=== PATIENT | female | born 1995 | race Caucasian/White ===

== ENCOUNTER 2017-05-16 17:19 | Emergency (ER) | payer OTHER ==
--- NOTE | 2017-05-16 17:38 | ED ORDER SUMMARY ---
..... Patient: NELDA KNOX OrderSheet [facility] VisitID: [id number] [place] [address] 22y, F Registration Date/Time: 05/16/2017 ORDER SHEET Weight: 84.3 kg (stated) Allergies: Percocet GENERAL ORDERS: Culture, Strep Screen Urgent (17:30 05/16/2017 EKoroleva P.A.-C) (Ack 17:31 LNations ER Tech1) (17:33 ASchmuck) POC Glucose (17:50 05/16/2017 EKoroleva P.A.-C) (17:54 ASchmuck) Chest 2V Urgent (17:56 05/16/2017 EKoroleva P.A.-C) (Ack 18:00 LNations ER Tech1) (18:12 MCampbell) Monoscreen Urgent (17:56 05/16/2017 EKoroleva P.A.-C) (Ack 18:00 LNations ER Tech1) (18:23 PWeiler ER Tech1) CBC w Diff Urgent (17:56 05/16/2017 EKoroleva P.A.-C) (Ack 18:00 LNations ER Tech1) (18:23 PWeiler ER Tech1) MEDICATION ORDERS: Tylenol w Codeine PO 2 tabs (HIGH ALERT MEDICATION, NOW) (17:30 05/16/2017 EKoroleva P.A.-C) (Ack 17:32 ASchmuck) (17:38 ASchmuck) Dexamethasone PO 8mg (NOW) (17:30 05/16/2017 EKoroleva P.A.-C) (Ack 17:32 ASchmuck) (17:38 ASchmuck) Motrin PO 800 mg (NOW) (17:30 05/16/2017 EKoroleva P.A.-C) (Ack 17:32 ASchmuck) (17:39 ASchmuck) Insulin Reg Subcut 6 units (HIGH ALERT MEDICATION, NOW) (18:21 05/16/2017 EKoroleva P.A.-C) (18:27 ASchmuck) IV FLUIDS: ORDER SHEET NOTES: [Electronically signed by Jessica Tony P.A.-C (19:26 05/16/2017)] [Electronically signed by Snehal Ortega (23:34 05/16/2017)] [Electronically locked/signed by Snehal Ortega (23:34 05/16/2017)]
--- NOTE | 2017-05-16 17:38 | ED CLINICAL REPORT ---
Clinical Report - Physicians/Mid Levels [facility] [address] [place] [address] 05/16/2017 17:21 Patient: NELDA KNOX Time Seen: 1725. Arrived- By private vehicle. Historian- patient and significant other. HISTORY OF PRESENT ILLNESS Chief Complaint: SORE THROAT. 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 The patient has had a sore throat. No mouth sores, nasal discharge, swollen jaw or face or jaw pain. No facial pain. (patient with sore throat, dry cough over the last 3 days, with chills. Loss of voice today. No sick contacts. No mono exposures. No mono exposure). REVIEW OF SYSTEMS No fever, difficulty breathing, nausea, abdominal pain or joint pain. No skin rash. She has had a cough. All systems otherwise negative, except as recorded above. PAST HISTORY Problems: Gastroenteritis. Adverse Drug Reaction. Bronchitis. Diabetes Mellitus. Tetanus Status. Acute Pain. Cellulitis. Immunizations. LNMP - Last Normal Menstrual Period. Additional Surgeries: Dental Surgery. Medications: None. Allergies: Percocet. (pain gets worse). SOCIAL HISTORY Smoker- current status unknown. Alcohol use. No drug use. ADDITIONAL NOTES The nursing notes have been reviewed. PHYSICAL EXAM Vital Signs: 05/16/2017 17:30 BP: 129/89. HR: 106. RR: 16. O2 saturation: 98%. Temp: 98.8 F. Appearance: Alert. No apparent distress. Head: Normal external inspection. Eyes: Conjunctivae and eyelids normal. ENT: Nose normal. Pharyngeal erythema. Lips normal. Gums normal. No trismus present. Neck: Lymphadenopathy present. Thyroid normal. Neck supple. CVS: Normal heart rate and rhythm. Heart sounds normal. Respiratory: No respiratory distress. Breath sounds normal. No decreased air movement or rales. Abdomen: Soft and nontender. No organomegaly. Skin: Normal skin color. No rash. LABS, X-RAYS, AND EKG Chest X-ray: (IMPRESSION: 1. No evidence of acute cardiopulmonary disease. 2. Stable exam compared to prior study. Electronically Final signed by:Tiny Hancock MD 05/16/2017 6:13:52 PM). Laboratory Tests: Monoscreen: (TAN: 05/16/2017 18:20) ( [facility] 05/16/2017 19:19) Final results Test Result Flag Units (Reference) MONOSCREEN NEGATIVE (NEGATIVE) CBC w Diff: (TAN: 05/16/2017 18:20) ( [facility] 05/16/2017 19:16) Final results Test Result Flag Units (Reference) WHITE BLOOD COUNT 12.7 H K/uL (4.5-11.5) RED BLOOD COUNT 4.85 M/uL (4.00-5.20) HEMOGLOBIN 13.4 gm/dL (12.0-16.0) HEMATOCRIT 40.1 % (36.0-46.0) MEAN CELL VOLUME 83 fL (80-100) MEAN CORPUSCULAR HGB 28 pg (26-34) MEAN CORPUSCULAR HGB CONC 34 g/dL (31-37) RED CELL DISTRIBUTION WIDTH 14.1 % (11.6-14.8) PLATELET COUNT 248 K/uL (150-400) NEUTROPHIL % 83.6 H % (50-75) LYMPH % 10.2 L % (25-40) MONO % 5.5 % (3-14) EOSINOPHIL % 0.6 % (0-4) BASOPHIL % 0.1 % (0-2) Culture, Strep Screen: (TAN: 05/16/2017 17:32) ( [facility] 05/16/2017 17:52) Final results Test Result Flag Units (Reference) RAPID STREP SCREEN - THROAT DATE: 05/16/17 NEGATIVE SCREEN: RAPID STREP SCREEN NEGATIVE; CONFIRMATION TO FOLLOW . PROGRESS AND PROCEDURES Course of Care: Here in the ER patient with loss of voice, signs of laryngitis, signs of pharyngitis, which may be bacterial in nature, she has had subjective fevers. No cough in the emergency department. Chest x-ray is unremarkable. Suspect viral etiology, however also suspicious for strep, patient will be treated for such. She has been a diabetic type II, over the last 2 years, has been largely diet controlled. Patient urged to follow up with Paresh Hernadez for this over the next 7-10 days. Patient here with significant other, who understands the plan as well. 05/16/2017 18:29 BP: 116/75. HR: 101. RR: 17. O2 saturation: 96%. Temp: 98.7 F. Pain level now: 6/10. Patient is stable. Physical exam findings are improved. Patient/family counseled. Disposition: Discharged. CLINICAL IMPRESSION Acute pharyngitis Well controlled type 2 diabetes. INSTRUCTIONS Drink plenty of fluids. (your labs look great hydrate salt water gargles follow up with your DR). Prescription Medications: Tylenol with Codeine Tylenol #3 (30 mg / 300 mg) : take 1 tablet orally every 6 hours as needed for pain. Dispense ten (10). No refill. Substitution is permissible. Amoxicillin 500 mg capsules: take 1 orally every 8 hours for 10 days. No refills. Follow-up: Follow up with your doctor in three days. Follow-up with: Dario Grubbs MD, Family [facility], , [facility], [address] [place] [address] Follow up. Call for the next available appointment. (Electronically signed by Jessica Tony P.A.-C 05/16/2017 19:26)
--- NOTE | 2017-05-16 17:38 | ED NURSING NOTES ---
Clinical Report - Nurses [facility] [address] [place] [address] 05/16/2017 17:21 Patient: NELDA KNOX TRIAGE Triage time 17:May 16 2017. Acuity: LEVEL 4. Chief Complaint: SORE THROAT. 17:30 05/16/17. Alert. SEPSIS SCREEN: Sepsis Screen. Negative (no infection suspected/documented). JONATHAN COMA SCORE: [place] Coma Scale: 15- eyes open spontaneously (4); best verbal response- oriented x 4 (5); best motor response- obeys commands (6). --17:30 Snehal Ortega 17:30 05/16/17. BP: 129/89. HR: 106. RR: 16. O2 saturation: 98%. Temp: 98.8 F. Pain level now 9/10. --17:30 Snehal Ortega. Weight: 84.3 kg stated. Height/Length: 66 inches Per Patient. BMI: 30. --17:30 Snehal Ortega. Medications None. --17:27 Snehal Ortega. Medication/allergy information source: the patient's family. --17:30 Snehal Ortega. Allergies Percocet. (pain gets worse) --17:28 Snehal Ortega. History Arrived by private vehicle. Historian: patient. Accompanied by (Tiburcio). Primary physician (Kennedi). Onset. (Past 3 days). ( Pt started getting a sore throat yesterday. Denies fever. Pt has lost voice. Is able to handle secretions.). She has had facial pain, hoarseness, ear pain and sinus pain. 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 (about 0500 this AM). PAST MEDICAL HX: No history of strep throat or mononucleosis. Immunizations: up-to-date. Last normal menstrual period was 4 weeks ago. SOCIAL HX: Current some days light tobacco smoker. Occasional alcohol use. No drug use. FALL RISK ASSESSMENT: Fall risk assessment completed. No fall risk identified. NUTRITIONAL RISK ASSESSMENT: The nutritional risk assessment revealed no deficiencies. FUNCTIONAL ASSESSMENT: Functional assessment: no impairments noted. LEARNING NEEDS ASSESSMENT: The learning needs assessment revealed no barriers. SKIN INTEGRITY ASSESSMENT: Skin integrity risk assessment completed. No skin integrity risk identified. --17:30 Snehal Ortega. PROBLEMS: Gastroenteritis. Adverse Drug Reaction. Bronchitis. Diabetes Mellitus. Acute Pain. Cellulitis. --17:28 Snehal Ortega. ADDITIONAL SURGERIES: Dental Surgery. --17:28 Snehal Ortega. Assessment The patient states feels the same. --17:30 Snehal Ortega. Interventions ID band on patient. --17:30 Snehal Ortega. PHYSICAL ASSESSMENT 17:30 05/16/17. Ambulatory to room. Patient gowned. GENERAL / NEURO / PSYCH: Alert. Oriented X 4. Appears in pain. HEENT: Pupils equal, round and reactive to light. Hoarse voice. Mucous membranes are pink. RESPIRATORY: Respirations not labored. CVS: Capillary refill less than 2 seconds. SKIN: Skin is warm and dry. Normal skin turgor. --17:30 Snehal Ortega. NURSING PROGRESS NOTES 17:31 05/16/17. The plan of care for this patient has been created. Patient gowned. Head of bed elevated. Reassurance given. Two patient identifiers checked. Call light placed in reach. Side rails up x 1. Bed placed in lowest position. Brakes of bed on. Patient ready for evaluation- chart flagged and ED physician and PA notified. --17:31 Snehal Ortega 17:31 05/16/17. ( Tiburcio reports that patient coughed up "a little bit" of blood. Has been coughing up dark green sputum.). --17:31 Snehal Ortega 17:38 05/16/2017 TYLENOL W CODEINE (Acetaminophen-Codeine) PO Tablets 2 tab given. Allergies verified and confirmed 5 rights. --17:38 Snehal Ortega 17:38 05/16/2017 Dexamethasone (Dexamethasone) PO Tablets 8 mg given. Allergies verified and confirmed 5 rights. --17:38 Snehal Ortega 17:39 05/16/2017 Motrin PO Tablets 800 mg given. Allergies verified and confirmed 5 rights. --17:39 Snehal Ortega 17:55 05/16/17. Point of care testing: performed by nurse. Glucose: 307. Result shown to the PA. --17:55 Snehal Ortega ( overview faxed to 2nd .). --18:09 Josie Juarez ER Tech1 Checked patient name and birthdate: patient confirmed. Blood samples drawn from the left antecubital space with 23g butterfly by tech per protocol ; labeled in presence of the patient and sent to lab: rainbow set. --18:25 Pietro Rucker ER Tech1 18:27 05/16/2017 Insulin Reg Subcutaneous 6 unit given. Given in the right upper arm. Allergies verified and confirmed 5 rights. (Dose verified with ELSA Morris). --18:27 Snehal Ortega 18:29 05/16/17. BP: 116/75. HR: 101. RR: 17. O2 saturation: 96%. Temp: 98.7 F. Pain level now: 04/29. --18:30 Snehal Ortega. DISPOSITION / DISCHARGE 19:30 05/16/17. Condition at departure: improved. The goals identified in the patient's plan of care were met. No learning barriers present. Discharge instructions provided and reviewed with the patient and family. ( BGL 303). FALL RISK ASSESSMENT: Fall risk assessment completed. No fall risk identified. --19:30 Snehal Ortega 19:30 05/16/17. BP: 120/74. HR: 95. RR: 17. O2 saturation: 98%. Temp: 98.6 F. Pain level now 510. --19:30 Snehal Ortega 19:33 05/16/17. Departure time: 19:May 16 2017. Reviewed warnings (Patient acknowledged importance of warning s/sx listed in dc paperwork, as well as the importance of taking entire course of antibiotics.). Reviewed medication(s). Prescription(s) given to the patient (Tylenol #3, amoxicillin.). Treatments reviewed. Reviewed referral to a primary care physician for followup. Patient verbalized understanding. Written instructions provided in Estonian. The patient was discharged by the physician exceptional children teacher assistant. She was discharged home and accompanied by edge inker uppers. She left the Emergency Department ambulatory and via private vehicle. Vegetable Loader driving. --19:33 Snehal Ortega. Locked/Released at 05/16/2017 23:34 by Snehal Ortega,
--- NOTE | 2017-05-16 17:38 | ED ORDER SUMMARY ---
..... Patient: NELDA KNOX OrderSheet [facility] VisitID: [id number] [place] [address] 22y, F Registration Date/Time: 05/16/2017 ORDER SHEET Weight: 84.3 kg (stated) Allergies: Percocet GENERAL ORDERS: Culture, Strep Screen Urgent (17:30 05/16/2017 EKoroleva P.A.-C) (Ack 17:31 LNations ER Tech1) (17:33 ASchmuck) POC Glucose (17:50 05/16/2017 EKoroleva P.A.-C) (17:54 ASchmuck) Chest 2V Urgent (17:56 05/16/2017 EKoroleva P.A.-C) (Ack 18:00 LNations ER Tech1) (18:12 MCampbell) Monoscreen Urgent (17:56 05/16/2017 EKoroleva P.A.-C) (Ack 18:00 LNations ER Tech1) (18:23 PWeiler ER Tech1) CBC w Diff Urgent (17:56 05/16/2017 EKoroleva P.A.-C) (Ack 18:00 LNations ER Tech1) (18:23 PWeiler ER Tech1) MEDICATION ORDERS: Tylenol w Codeine PO 2 tabs (HIGH ALERT MEDICATION, NOW) (17:30 05/16/2017 EKoroleva P.A.-C) (Ack 17:32 ASchmuck) (17:38 ASchmuck) Dexamethasone PO 8mg (NOW) (17:30 05/16/2017 EKoroleva P.A.-C) (Ack 17:32 ASchmuck) (17:38 ASchmuck) Motrin PO 800 mg (NOW) (17:30 05/16/2017 EKoroleva P.A.-C) (Ack 17:32 ASchmuck) (17:39 ASchmuck) Insulin Reg Subcut 6 units (HIGH ALERT MEDICATION, NOW) (18:21 05/16/2017 EKoroleva P.A.-C) (18:27 ASchmuck) IV FLUIDS: ORDER SHEET NOTES: [Electronically signed by Jessica Tony P.A.-C (19:26 05/16/2017)] [Electronically signed by Snehal Ortega (23:34 05/16/2017)] [Electronically locked/signed by Snehal Ortega (23:34 05/16/2017)]
--- NOTE | 2017-05-16 17:38 | ED NURSING NOTES ---
Clinical Report - Nurses [facility] [address] [place] [address] 05/16/2017 17:21 Patient: NELDA KNOX TRIAGE Triage time 17:May 16 2017. Acuity: LEVEL 4. Chief Complaint: SORE THROAT. 17:30 05/16/17. Alert. SEPSIS SCREEN: Sepsis Screen. Negative (no infection suspected/documented). JONATHAN COMA SCORE: [place] Coma Scale: 15- eyes open spontaneously (4); best verbal response- oriented x 4 (5); best motor response- obeys commands (6). --17:30 Snehal Ortega 17:30 05/16/17. BP: 129/89. HR: 106. RR: 16. O2 saturation: 98%. Temp: 98.8 F. Pain level now 9/10. --17:30 Snehal Ortega. Weight: 84.3 kg stated. Height/Length: 66 inches Per Patient. BMI: 30. --17:30 Snehal Ortega. Medications None. --17:27 Snehal Ortega. Medication/allergy information source: the patient's family. --17:30 Snehal Ortega. Allergies Percocet. (pain gets worse) --17:28 Snehal Ortega. History Arrived by private vehicle. Historian: patient. Accompanied by (Tiburcio). Primary physician (Kennedi). Onset. (Past 3 days). ( Pt started getting a sore throat yesterday. Denies fever. Pt has lost voice. Is able to handle secretions.). She has had facial pain, hoarseness, ear pain and sinus pain. 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 (about 0500 this AM). PAST MEDICAL HX: No history of strep throat or mononucleosis. Immunizations: up-to-date. Last normal menstrual period was 4 weeks ago. SOCIAL HX: Current some days light tobacco smoker. Occasional alcohol use. No drug use. FALL RISK ASSESSMENT: Fall risk assessment completed. No fall risk identified. NUTRITIONAL RISK ASSESSMENT: The nutritional risk assessment revealed no deficiencies. FUNCTIONAL ASSESSMENT: Functional assessment: no impairments noted. LEARNING NEEDS ASSESSMENT: The learning needs assessment revealed no barriers. SKIN INTEGRITY ASSESSMENT: Skin integrity risk assessment completed. No skin integrity risk identified. --17:30 Snehal Ortega. PROBLEMS: Gastroenteritis. Adverse Drug Reaction. Bronchitis. Diabetes Mellitus. Acute Pain. Cellulitis. --17:28 Snehal Ortega. ADDITIONAL SURGERIES: Dental Surgery. --17:28 Snehal Ortega. Assessment The patient states feels the same. --17:30 Snehal Ortega. Interventions ID band on patient. --17:30 Snehal Ortega. PHYSICAL ASSESSMENT 17:30 05/16/17. Ambulatory to room. Patient gowned. GENERAL / NEURO / PSYCH: Alert. Oriented X 4. Appears in pain. HEENT: Pupils equal, round and reactive to light. Hoarse voice. Mucous membranes are pink. RESPIRATORY: Respirations not labored. CVS: Capillary refill less than 2 seconds. SKIN: Skin is warm and dry. Normal skin turgor. --17:30 Snehal Ortega. NURSING PROGRESS NOTES 17:31 05/16/17. The plan of care for this patient has been created. Patient gowned. Head of bed elevated. Reassurance given. Two patient identifiers checked. Call light placed in reach. Side rails up x 1. Bed placed in lowest position. Brakes of bed on. Patient ready for evaluation- chart flagged and ED physician and PA notified. --17:31 Snehal Ortega 17:31 05/16/17. ( Tiburcio reports that patient coughed up "a little bit" of blood. Has been coughing up dark green sputum.). --17:31 Snehal Ortega 17:38 05/16/2017 TYLENOL W CODEINE (Acetaminophen-Codeine) PO Tablets 2 tab given. Allergies verified and confirmed 5 rights. --17:38 Snehal Ortega 17:38 05/16/2017 Dexamethasone (Dexamethasone) PO Tablets 8 mg given. Allergies verified and confirmed 5 rights. --17:38 Snehal Ortega 17:39 05/16/2017 Motrin PO Tablets 800 mg given. Allergies verified and confirmed 5 rights. --17:39 Snehal Ortega 17:55 05/16/17. Point of care testing: performed by nurse. Glucose: 307. Result shown to the PA. --17:55 Snehal Ortega ( overview faxed to 2nd .). --18:09 Josie Juarez ER Tech1 Checked patient name and birthdate: patient confirmed. Blood samples drawn from the left antecubital space with 23g butterfly by tech per protocol ; labeled in presence of the patient and sent to lab: rainbow set. --18:25 Pietro Rucker ER Tech1 18:27 05/16/2017 Insulin Reg Subcutaneous 6 unit given. Given in the right upper arm. Allergies verified and confirmed 5 rights. (Dose verified with ELSA Morris). --18:27 Snehal Ortega 18:29 05/16/17. BP: 116/75. HR: 101. RR: 17. O2 saturation: 96%. Temp: 98.7 F. Pain level now: 04/29. --18:30 Snehal Ortega. DISPOSITION / DISCHARGE 19:30 05/16/17. Condition at departure: improved. The goals identified in the patient's plan of care were met. No learning barriers present. Discharge instructions provided and reviewed with the patient and family. ( BGL 303). FALL RISK ASSESSMENT: Fall risk assessment completed. No fall risk identified. --19:30 Snehal Ortega 19:30 05/16/17. BP: 120/74. HR: 95. RR: 17. O2 saturation: 98%. Temp: 98.6 F. Pain level now 510. --19:30 Snehal Ortega 19:33 05/16/17. Departure time: 19:May 16 2017. Reviewed warnings (Patient acknowledged importance of warning s/sx listed in dc paperwork, as well as the importance of taking entire course of antibiotics.). Reviewed medication(s). Prescription(s) given to the patient (Tylenol #3, amoxicillin.). Treatments reviewed. Reviewed referral to a primary care physician for followup. Patient verbalized understanding. Written instructions provided in Macedonian. The patient was discharged by the physician administrative assistant front desk. She was discharged home and accompanied by puzzle assembler. She left the Emergency Department ambulatory and via private vehicle. Supervisor Orchard driving. --19:33 Snehal Ortega. Locked/Released at 05/16/2017 23:34 by Snehal Ortega,
--- NOTE | 2017-05-16 17:38 | ED CLINICAL REPORT ---
Clinical Report - Physicians/Mid Levels [facility] [address] [place] [address] 05/16/2017 17:21 Patient: NELDA KNOX Time Seen: 1725. Arrived- By private vehicle. Historian- patient and significant other. HISTORY OF PRESENT ILLNESS Chief Complaint: SORE THROAT. 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 The patient has had a sore throat. No mouth sores, nasal discharge, swollen jaw or face or jaw pain. No facial pain. (patient with sore throat, dry cough over the last 3 days, with chills. Loss of voice today. No sick contacts. No mono exposures. No mono exposure). REVIEW OF SYSTEMS No fever, difficulty breathing, nausea, abdominal pain or joint pain. No skin rash. She has had a cough. All systems otherwise negative, except as recorded above. PAST HISTORY Problems: Gastroenteritis. Adverse Drug Reaction. Bronchitis. Diabetes Mellitus. Tetanus Status. Acute Pain. Cellulitis. Immunizations. LNMP - Last Normal Menstrual Period. Additional Surgeries: Dental Surgery. Medications: None. Allergies: Percocet. (pain gets worse). SOCIAL HISTORY Smoker- current status unknown. Alcohol use. No drug use. ADDITIONAL NOTES The nursing notes have been reviewed. PHYSICAL EXAM Vital Signs: 05/16/2017 17:30 BP: 129/89. HR: 106. RR: 16. O2 saturation: 98%. Temp: 98.8 F. Appearance: Alert. No apparent distress. Head: Normal external inspection. Eyes: Conjunctivae and eyelids normal. ENT: Nose normal. Pharyngeal erythema. Lips normal. Gums normal. No trismus present. Neck: Lymphadenopathy present. Thyroid normal. Neck supple. CVS: Normal heart rate and rhythm. Heart sounds normal. Respiratory: No respiratory distress. Breath sounds normal. No decreased air movement or rales. Abdomen: Soft and nontender. No organomegaly. Skin: Normal skin color. No rash. LABS, X-RAYS, AND EKG Chest X-ray: (IMPRESSION: 1. No evidence of acute cardiopulmonary disease. 2. Stable exam compared to prior study. Electronically Final signed by:Tiny Hancock MD 05/16/2017 6:13:52 PM). Laboratory Tests: Monoscreen: (TAN: 05/16/2017 18:20) ( [facility] 05/16/2017 19:19) Final results Test Result Flag Units (Reference) MONOSCREEN NEGATIVE (NEGATIVE) CBC w Diff: (TAN: 05/16/2017 18:20) ( [facility] 05/16/2017 19:16) Final results Test Result Flag Units (Reference) WHITE BLOOD COUNT 12.7 H K/uL (4.5-11.5) RED BLOOD COUNT 4.85 M/uL (4.00-5.20) HEMOGLOBIN 13.4 gm/dL (12.0-16.0) HEMATOCRIT 40.1 % (36.0-46.0) MEAN CELL VOLUME 83 fL (80-100) MEAN CORPUSCULAR HGB 28 pg (26-34) MEAN CORPUSCULAR HGB CONC 34 g/dL (31-37) RED CELL DISTRIBUTION WIDTH 14.1 % (11.6-14.8) PLATELET COUNT 248 K/uL (150-400) NEUTROPHIL % 83.6 H % (50-75) LYMPH % 10.2 L % (25-40) MONO % 5.5 % (3-14) EOSINOPHIL % 0.6 % (0-4) BASOPHIL % 0.1 % (0-2) Culture, Strep Screen: (TAN: 05/16/2017 17:32) ( [facility] 05/16/2017 17:52) Final results Test Result Flag Units (Reference) RAPID STREP SCREEN - THROAT DATE: 05/16/17 NEGATIVE SCREEN: RAPID STREP SCREEN NEGATIVE; CONFIRMATION TO FOLLOW . PROGRESS AND PROCEDURES Course of Care: Here in the ER patient with loss of voice, signs of laryngitis, signs of pharyngitis, which may be bacterial in nature, she has had subjective fevers. No cough in the emergency department. Chest x-ray is unremarkable. Suspect viral etiology, however also suspicious for strep, patient will be treated for such. She has been a diabetic type II, over the last 2 years, has been largely diet controlled. Patient urged to follow up with Paresh Hernadez for this over the next 7-10 days. Patient here with significant other, who understands the plan as well. 05/16/2017 18:29 BP: 116/75. HR: 101. RR: 17. O2 saturation: 96%. Temp: 98.7 F. Pain level now: 6/10. Patient is stable. Physical exam findings are improved. Patient/family counseled. Disposition: Discharged. CLINICAL IMPRESSION Acute pharyngitis Well controlled type 2 diabetes. INSTRUCTIONS Drink plenty of fluids. (your labs look great hydrate salt water gargles follow up with your DR). Prescription Medications: Tylenol with Codeine Tylenol #3 (30 mg / 300 mg) : take 1 tablet orally every 6 hours as needed for pain. Dispense ten (10). No refill. Substitution is permissible. Amoxicillin 500 mg capsules: take 1 orally every 8 hours for 10 days. No refills. Follow-up: Follow up with your doctor in three days. Follow-up with: Dario Grubbs MD, Family [facility], , [facility], [address] [place] [address] Follow up. Call for the next available appointment. (Electronically signed by Jessica Tony P.A.-C 05/16/2017 19:26)
--- NOTE | 2017-05-16 18:14 | DIAGNOSTIC IMAGING REPORT ---
PROCEDURE: XR CHEST 2 VIEW INDICATION: FEVER TECHNIQUE: Two views. COMPARISON: 12/04/2015 FINDINGS: The cardiomediastinal contour is stable, within normal limits. The central vasculature is not congested. The lungs are clear without focal consolidation, pleural effusion or pneumothorax. The visualized osseous structures are intact. IMPRESSION: 1. No evidence of acute cardiopulmonary disease. 2. Stable exam compared to prior study.
--- NOTE | 2017-05-16 23:35 | ED MAR SUMMARY ---
..... Medication Administration Record [facility] [address] [place] [address] Patient: NELDA KNOX Visit ID: [id number] 22y, F Weight: 84.3 kg Height/Length: 66 in BMI: 30 ALLERGIES: Percocet Given 17:05/16/2017 Snehal Ortega, Medication Administered: TYLENOL W CODEINE [PO] (ACETAMINOPHEN-CODEINE), Dose: 2 tab Tablets PO. Medication Ordered: Tylenol w Codeine PO 2 tabs (HIGH ALERT MEDICATION, NOW). Given 17:05/16/2017 Snehal Ortega, Medication Administered: DEXAMETHASONE [PO] (DEXAMETHASONE), Dose: 8 mg Tablets PO. Medication Ordered: Dexamethasone PO 8mg (NOW). Given 17:05/16/2017 Snehal Ortega, Medication Administered: MOTRIN [PO], Dose: 800 mg Tablets PO. Medication Ordered: Motrin PO 800 mg (NOW). Given 18:05/16/2017 Snehal Ortega, Medication Administered: INSULIN REG [SUBCUTANEOUS], Dose: 6 unit Subcutaneous. Medication Ordered: Insulin Reg Subcut 6 units (HIGH ALERT MEDICATION, NOW).
--- NOTE | 2017-05-16 23:35 | ED MAR SUMMARY ---
..... Medication Administration Record [facility] [address] [place] [address] Patient: NELDA KNOX Visit ID: [id number] 22y, F Weight: 84.3 kg Height/Length: 66 in BMI: 30 ALLERGIES: Percocet Given 17:05/16/2017 Snehal rOtega, Medication Administered: TYLENOL W CODEINE [PO] (ACETAMINOPHEN-CODEINE), Dose: 2 tab Tablets PO. Medication Ordered: Tylenol w Codeine PO 2 tabs (HIGH ALERT MEDICATION, NOW). Given 17:05/16/2017 Snehal Ortega, Medication Administered: DEXAMETHASONE [PO] (DEXAMETHASONE), Dose: 8 mg Tablets PO. Medication Ordered: Dexamethasone PO 8mg (NOW). Given 17:05/16/2017 Snehal Ortega, Medication Administered: MOTRIN [PO], Dose: 800 mg Tablets PO. Medication Ordered: Motrin PO 800 mg (NOW). Given 18:05/16/2017 Snehal Ortega, Medication Administered: INSULIN REG [SUBCUTANEOUS], Dose: 6 unit Subcutaneous. Medication Ordered: Insulin Reg Subcut 6 units (HIGH ALERT MEDICATION, NOW).
--- NOTE | 2017-05-16 23:35 | ED MED RECONCILIATION SUMMARY ---
Patient: NELDA KNOX Medication Reconciliation Report [facility] VisitID: [id number] [place] [address] 22y, F Registration Date/Time: 05/16/2017 Weight: 84.3 kg Height/Length: 66 in. BMI: 30.0 ALLERGIES: Percocet The patient's Home Medications are listed below: NONE. The source(s) of the original Home Medication information: patient's family member The following Medications were given to the patient in the Emergency Department: TYLENOL W CODEINE [PO] PO 2 tab, administered: 05/16/2017 5:38:00 PM Dexamethasone [PO] PO 8 mg, administered: 05/16/2017 5:38:00 PM Motrin [PO] PO 800 mg, administered: 05/16/2017 5:39:00 PM Insulin Reg [Subcutaneous] Subcutaneous 6 unit, administered: 05/16/2017 6:27:00 PM The following Medications were prescribed to the patient: Tylenol with Codeine Tylenol #3 (30 mg / 300 mg) : take 1 tablet orally every 6 hours as needed for pain. Dispense ten (10). No refill. Substitution is permissible. -- Jessica Tony PLibbyALibby-Hector Amoxicillin 500 mg capsules: take 1 orally every 8 hours for 10 days. No refills. -- Jessica Tony P.ALibby-C
--- NOTE | 2017-05-16 23:35 | ED MED RECONCILIATION SUMMARY ---
Patient: NELDA KNOX Medication Reconciliation Report [facility] VisitID: [id number] [place] [address] 22y, F Registration Date/Time: 05/16/2017 Weight: 84.3 kg Height/Length: 66 in. BMI: 30.0 ALLERGIES: Percocet The patient's Home Medications are listed below: NONE. The source(s) of the original Home Medication information: patient's family member The following Medications were given to the patient in the Emergency Department: TYLENOL W CODEINE [PO] PO 2 tab, administered: 05/16/2017 5:38:00 PM Dexamethasone [PO] PO 8 mg, administered: 05/16/2017 5:38:00 PM Motrin [PO] PO 800 mg, administered: 05/16/2017 5:39:00 PM Insulin Reg [Subcutaneous] Subcutaneous 6 unit, administered: 05/16/2017 6:27:00 PM The following Medications were prescribed to the patient: Tylenol with Codeine Tylenol #3 (30 mg / 300 mg) : take 1 tablet orally every 6 hours as needed for pain. Dispense ten (10). No refill. Substitution is permissible. -- Jessica Tony PLibbyALibby-Hector Amoxicillin 500 mg capsules: take 1 orally every 8 hours for 10 days. No refills. -- Jessica Tony P.ALibby-C
--- NOTE | 2017-05-16 23:35 | ED DISCHARGE INSTRUCTIONS ---
Patient: NELDA KNOX General Instructions [facility] VisitID: [id number] [place] [id number] 22y, F Registration Date/Time: 05/16/2017 Acute pharyngitis Well controlled type 2 diabetes. INSTRUCTIONS Drink plenty of fluids. (your labs look great hydrate salt water gargles follow up with your DR). Prescription Medications: Tylenol with Codeine Tylenol #3 (30 mg / 300 mg) : take 1 tablet orally every 6 hours as needed for pain. Dispense ten (10). No refill. Substitution is permissible. Amoxicillin 500 mg capsules: take 1 orally every 8 hours for 10 days. No refills. Follow-up: Follow up with your doctor in three days. Follow-up with: Dario Grubbs MD, [facility], , [facility], [address] [place] [address] Follow up. Call for the next available appointment. ADDITIONAL INFORMATION Pharyngitis: Strep [Presumed] Your illness has the signs of a strep throat infection. Strep throat is a contagious illness. It is spread by coughing, kissing or by touching others after touching your mouth or nose. Symptoms include throat pain worse with swallowing, aching all over, headache and fever. You will be treated with an antibiotic, which should make you start to feel better within 1-2 days. Home Care: Rest at home and drink plenty of fluids to avoid dehydration. No school or work for the first two days on antibiotics. You will not be contagious after this time, and if you are feeling better, you can return to school or work. Take your antibiotics for a full 10 days, even if you feel better after the first few days of treatment. This is very important to prevent complications from the strep infection (such as heart or kidney disease). Children: Use acetaminophen (Tylenol) for fever, fussiness or discomfort. In infants over six months of age, you may use ibuprofen (Children's Motrin) instead of Tylenol. [NOTE: If your child has chronic liver or kidney disease or ever had a stomach ulcer or GI bleeding, talk with your doctor before using these medicines.] (Aspirin should never be used in anyone under 18 years of age who is ill with a fever. It may cause severe liver damage.) Adults: You may use acetaminophen (Tylenol) or ibuprofen (Motrin, Advil) to control pain or fever, unless another medicine was prescribed for this. [NOTE: If you have chronic liver or kidney disease or ever had a stomach ulcer or GI bleeding, talk with your doctor before using these medicines.] Throat lozenges or sprays (Chloraseptic and others) will reduce pain. Gargling with warm salt water will also reduce throat pain. Dissolve 1/2 teaspoon of salt in 1 glass of warm water. This is especially useful just before meals. Follow Up with your doctor or as directed by our staff if you are not improving over the next week. Get Prompt Medical Attention if any of the following occur: Fever over 100.5F (38.0C) oral, or over 101.5F (38.6C) rectal for more than three days New or worsening ear pain, sinus pain or headache Painful lumps in the back of your neck Unable to swallow liquids or open your mouth wide due to throat pain Trouble breathing or noisy breathing Muffled voice New rash Amoxicillin Trihydrate Oral tablet What is this medicine? AMOXICILLIN (a mox i MATT in) is a penicillin antibiotic. It is used to treat certain kinds of bacterial infections. It will not work for colds, flu, or other viral infections. How should I use this medicine? Take this medicine by mouth with a glass of water. Follow the directions on your prescription label. You may take this medicine with food or on an empty stomach. Take your medicine at regular intervals. Do not take your medicine more often than directed. Take all of your medicine as directed even if you think your are better. Do not skip doses or stop your medicine early. Talk to your phone counselor regarding the use of this medicine in children. While this drug may be prescribed for selected conditions, precautions do apply. What side effects may I notice from receiving this medicine? Side effects that you should report to your doctor or health youth care specialist as soon as possible: allergic reactions like skin rash, itching or hives, swelling of the face, lips, or tongue breathing problems dark urine redness, blistering, peeling or loosening of the skin, including inside the mouth seizures severe or watery diarrhea trouble passing urine or change in the amount of urine unusual bleeding or bruising unusually weak or tired yellowing of the eyes or skin Side effects that usually do not require medical attention (report to your doctor or health youth care specialist if they continue or are bothersome): dizziness headache stomach upset trouble sleeping What may interact with this medicine? amiloride control pills chloramphenicol macrolides probenecid sulfonamides tetracyclines What if I miss a dose? If you miss a dose, take it as soon as you can. If it is almost time for your next dose, take only that dose. Do not take double or extra doses. Where should I keep my medicine? Keep out of the reach of children. Store between 68 and 77 degrees F (20 and 25 degrees C). Keep bottle closed tightly. Throw away any unused medicine after the expiration date. What should I tell my health care provider before I take this medicine? They need to know if you have any of these conditions: asthma kidney disease an unusual or allergic reaction to amoxicillin, other penicillins, cephalosporin antibiotics, other medicines, foods, dyes, or preservatives or trying to get breast-feeding What should I watch for while using this medicine? Tell your doctor or health youth care specialist if your symptoms do not improve in 2 or 3 days. Take all of the doses of your medicine as directed. Do not skip doses or stop your medicine early. If you are diabetic, you may get a false positive result for sugar in your urine with certain brands of urine tests. Check with your doctor. Do not treat diarrhea with [id number] products. Contact your doctor if you have diarrhea that lasts more than 2 days or if the diarrhea is severe and watery. You have been given the following additional information: Pharyngitis, Strep (Presumed) Amoxicillin Trihydrate Oral tablet (Electronically signed by Jessica Tony P.A.-C 05/16/2017 19:26)
--- NOTE | 2017-05-16 23:35 | ED DISCHARGE INSTRUCTIONS ---
Patient: NELDA KNOX General Instructions [facility] VisitID: [id number] [place] [phone] 22y, F Registration Date/Time: 05/16/2017 Acute pharyngitis Well controlled type 2 diabetes. INSTRUCTIONS Drink plenty of fluids. (your labs look great hydrate salt water gargles follow up with your DR). Prescription Medications: Tylenol with Codeine Tylenol #3 (30 mg / 300 mg) : take 1 tablet orally every 6 hours as needed for pain. Dispense ten (10). No refill. Substitution is permissible. Amoxicillin 500 mg capsules: take 1 orally every 8 hours for 10 days. No refills. Follow-up: Follow up with your doctor in three days. Follow-up with: Dario Grubbs MD, [facility], , [facility], [address] [place] [address] Follow up. Call for the next available appointment. ADDITIONAL INFORMATION Pharyngitis: Strep [Presumed] Your illness has the signs of a strep throat infection. Strep throat is a contagious illness. It is spread by coughing, kissing or by touching others after touching your mouth or nose. Symptoms include throat pain worse with swallowing, aching all over, headache and fever. You will be treated with an antibiotic, which should make you start to feel better within 1-2 days. Home Care: Rest at home and drink plenty of fluids to avoid dehydration. No school or work for the first two days on antibiotics. You will not be contagious after this time, and if you are feeling better, you can return to school or work. Take your antibiotics for a full 10 days, even if you feel better after the first few days of treatment. This is very important to prevent complications from the strep infection (such as heart or kidney disease). Children: Use acetaminophen (Tylenol) for fever, fussiness or discomfort. In infants over six months of age, you may use ibuprofen (Children's Motrin) instead of Tylenol. [NOTE: If your child has chronic liver or kidney disease or ever had a stomach ulcer or GI bleeding, talk with your doctor before using these medicines.] (Aspirin should never be used in anyone under 18 years of age who is ill with a fever. It may cause severe liver damage.) Adults: You may use acetaminophen (Tylenol) or ibuprofen (Motrin, Advil) to control pain or fever, unless another medicine was prescribed for this. [NOTE: If you have chronic liver or kidney disease or ever had a stomach ulcer or GI bleeding, talk with your doctor before using these medicines.] Throat lozenges or sprays (Chloraseptic and others) will reduce pain. Gargling with warm salt water will also reduce throat pain. Dissolve 1/2 teaspoon of salt in 1 glass of warm water. This is especially useful just before meals. Follow Up with your doctor or as directed by our staff if you are not improving over the next week. Get Prompt Medical Attention if any of the following occur: Fever over 100.5F (38.0C) oral, or over 101.5F (38.6C) rectal for more than three days New or worsening ear pain, sinus pain or headache Painful lumps in the back of your neck Unable to swallow liquids or open your mouth wide due to throat pain Trouble breathing or noisy breathing Muffled voice New rash Amoxicillin Trihydrate Oral tablet What is this medicine? AMOXICILLIN (a mox i MATT in) is a penicillin antibiotic. It is used to treat certain kinds of bacterial infections. It will not work for colds, flu, or other viral infections. How should I use this medicine? Take this medicine by mouth with a glass of water. Follow the directions on your prescription label. You may take this medicine with food or on an empty stomach. Take your medicine at regular intervals. Do not take your medicine more often than directed. Take all of your medicine as directed even if you think your are better. Do not skip doses or stop your medicine early. Talk to your lens coater regarding the use of this medicine in children. While this drug may be prescribed for selected conditions, precautions do apply. What side effects may I notice from receiving this medicine? Side effects that you should report to your doctor or health client care coordinator as soon as possible: allergic reactions like skin rash, itching or hives, swelling of the face, lips, or tongue breathing problems dark urine redness, blistering, peeling or loosening of the skin, including inside the mouth seizures severe or watery diarrhea trouble passing urine or change in the amount of urine unusual bleeding or bruising unusually weak or tired yellowing of the eyes or skin Side effects that usually do not require medical attention (report to your doctor or health client care coordinator if they continue or are bothersome): dizziness headache stomach upset trouble sleeping What may interact with this medicine? amiloride control pills chloramphenicol macrolides probenecid sulfonamides tetracyclines What if I miss a dose? If you miss a dose, take it as soon as you can. If it is almost time for your next dose, take only that dose. Do not take double or extra doses. Where should I keep my medicine? Keep out of the reach of children. Store between 68 and 77 degrees F (20 and 25 degrees C). Keep bottle closed tightly. Throw away any unused medicine after the expiration date. What should I tell my health care provider before I take this medicine? They need to know if you have any of these conditions: asthma kidney disease an unusual or allergic reaction to amoxicillin, other penicillins, cephalosporin antibiotics, other medicines, foods, dyes, or preservatives or trying to get breast-feeding What should I watch for while using this medicine? Tell your doctor or health client care coordinator if your symptoms do not improve in 2 or 3 days. Take all of the doses of your medicine as directed. Do not skip doses or stop your medicine early. If you are diabetic, you may get a false positive result for sugar in your urine with certain brands of urine tests. Check with your doctor. Do not treat diarrhea with [id number] products. Contact your doctor if you have diarrhea that lasts more than 2 days or if the diarrhea is severe and watery. You have been given the following additional information: Pharyngitis, Strep (Presumed) Amoxicillin Trihydrate Oral tablet (Electronically signed by Jessica Tony P.A.-C 05/16/2017 19:26)
== END 2017-05-16 19:33 | disposition home or self-care (01) ==
LOC: ED SRH 17:19
DX: J02.9 Acute pharyngitis, unspecified (principal); E11.9 Type 2 diabetes mellitus without complications; Z88.5 Allergy status to narcotic agent
CPT/HCPCS: 90074; 90098; 90154; 90159; 90627; 95059; 98370